=== PATIENT | female | born 1985 | race Caucasian/White ===

== ENCOUNTER 2020-07-09 10:03 | Emergency (ER) | payer OTHER | END 2020-07-09 14:33 | disposition home or self-care (01) | LOC: FER 10:03 | DX: S20.221A Contusion of right back wall of thorax, initial encounter (principal); M54.5 Low back pain; M54.2 Cervicalgia; M25.551 Pain in right hip; M25.552 Pain in left hip; V49.50XA Passenger injured in collision with unspecified motor vehicles in traffic accident, initial encounter; Y92.410 Unspecified street and highway as the place of occurrence of the external cause | CPT/HCPCS: 71250; 72125; 72128; 72131 ==